=== PATIENT | female | born 1935 | race Caucasian/White ===

== ENCOUNTER 2021-07-05 05:44 | Inpatient (IN) ==
[2021-07-05] MEDS ORDERED: VANCOMYCIN INJ 1,000 MG in SODIUM CHLORIDE 0.9% 250 ML IV ONE (06:00)
[2021-07-05] MEDS ORDERED: GABAPENTIN 400 MG CAPSULE PO ONE (06:00)
[2021-07-05] MEDS ORDERED: FAMOTIDINE 20 MG TABLET PO ONE (06:00)
[2021-07-05] MEDS ORDERED: ACETAMINOPHEN 500 MG TABLET PO ONE (06:00)
[2021-07-05] MEDS ORDERED: ONDANSETRON 4 MG/2 ML VIAL ONE (06:15)
[2021-07-05] MEDS ORDERED: DEXMEDETOMIDINE 200 MCG/2 ML VIAL ONE (06:15)
[2021-07-05] MEDS ORDERED: BUPIVACAINE SPINAL 0.75% 2 ML AMP SPINAL ONE (06:15)
[2021-07-05] MEDS ORDERED: TRANEXAMIC ACID 1,000 MG/10 ML VIAL ONE (06:15)
[2021-07-05] MEDS ORDERED: MIDAZOLAM 2 MG/2 ML VIAL ONE (06:15)
[2021-07-05 06:49] LABS: INR 0.9; PT Patient Result 10.6 SECS (10.5-12.0); Partial Thromboplastin Time 28.2 SECS (23.8-32.1)
[2021-07-05] MEDS ORDERED: DEXAMETHASONE 4 MG/1 ML VIAL ONE ×3 (06:49→07:32)
[2021-07-05] MEDS ORDERED: LIDOCAINE 1% 5 ML VIAL ONE (06:49)
[2021-07-05] MEDS ORDERED: ROPIVACAINE 0.5% 30 ML VIAL ONE (06:49)
[2021-07-05] MEDS: LACTATED RINGERS 1,000 ML IV SCH ×2 (07:15→08:30)
[2021-07-05] MEDS ORDERED: NITROGLYCERIN SL 0.4 MG TABLET SL PRN (07:19)
[2021-07-05] MEDS ORDERED: MAGNESIUM HYDROXIDE SUSP 30 ML UDCUP PO PRN (07:23)
[2021-07-05] MEDS ORDERED: MORPHINE 2 MG/1 ML SYRINGE IV PRN (07:23)
[2021-07-05] MEDS ORDERED: diphenhydrAMINE CAP 25 MG CAPSULE PO PRN (07:23)
[2021-07-05] MEDS ORDERED: ZALEPLON 5 MG CAPSULE PO PRN (07:23)
[2021-07-05] MEDS ORDERED: ONDANSETRON 4 MG/2 ML VIAL IV PRN (07:23)
[2021-07-05] MEDS ORDERED: SEVOFLURANE 1 UNIT/15 MINUTE INH ONE (07:32)
[2021-07-05] MEDS ORDERED: PHENYLEPHRINE 1 MG/10 ML SYRINGE IV ONE ×2 (07:32→08:13)
[2021-07-05] MEDS ORDERED: LACTATED RINGERS 1,000 ML IV ONE (08:23)
[2021-07-05] MEDS ORDERED: ALBUMIN 5% 12.5 GM/250 ML VIAL IV ONE ×2 (09:42→09:44)
[2021-07-05] MEDS: MULTIVITAMIN (CENTRUM) TABLET PO SCH (14:02)
[2021-07-05] MEDS: KETOROLAC 15 MG/1 ML VIAL IV SCH ×3 (14:03→23:06)
[2021-07-05] MEDS: PANTOPRAZOLE 40 MG TABLET PO SCH (14:03)
[2021-07-05] MEDS: AZITHROMYCIN 250 MG TABLET PO SCH (14:03)
[2021-07-05] MEDS: LORATADINE 10 MG TABLET PO SCH (14:03)
[2021-07-05] MEDS: DOCUSATE SODIUM 100 MG CAPSULE PO SCH ×2 (14:03→21:11)
[2021-07-05] MEDS: MULTIVITAMIN (OCUVITE) TABLET PO SCH (14:03)
[2021-07-05] MEDS: POTASSIUM CHLORIDE INJ 20 MEQ in LACTATED RINGERS 1,000 ML IV SCH ×3 (21:08→23:07)
[2021-07-05] MEDS: SOTALOL 80 MG TABLET PO SCH (21:11)
[2021-07-05] MEDS: OXYBUTYNIN 5 MG TABLET PO SCH (21:12)
[2021-07-05] MEDS: APIXABAN 2.5 MG TABLET PO SCH (21:12)
[2021-07-05] MEDS: amLODIPine 5 MG TABLET PO SCH (21:12)
[2021-07-06] MEDS: KETOROLAC 15 MG/1 ML VIAL IV SCH (04:08)
[2021-07-06 05:58] LABS: Basophils % 0.1 % (0.0-0.8); Hematocrit 30.9 VOL% (35.7-47.0); Hemoglobin 10.1 GM/DL (12.0-16.0); Immature Granulocytes % 0.6 %; Immature Granulocytes Absolute 0.09 #; Lymphocytes # 1.9 10*3/uL (1.4-4.0); Lymphocytes % 11.6 % (21.3-54.2); Mean Corpuscular HGB Conc 32.7 GM/DL (32-36); Mean Corpuscular Volume 94.8 FL (87-102); Mean Platelet Volume 12.3 FL (9.6-12.0); Monocytes % 11.3 % (1.7-12.7); Neutrophils % 76.4 % (38.7-73.9); Platelet Count 195 T/CUMM (130-400); Red Blood Count 3.26 MC/CUMM (3.8-5.5); Red Cell Distribution Width 12.2 % (9.3-17.3); White Blood Count 15.9 T/CUMM (4-12)
[2021-07-06 06:13] LABS: Calcium 8.7 MG/DL (8.5-10.1); Osmolality,Calculated 278.5 MOS/KG (273-304)
[2021-07-06] MEDS: POTASSIUM CHLORIDE 10 MEQ TABLET PO SCH (08:54)
[2021-07-06] MEDS: OXYBUTYNIN 5 MG TABLET PO SCH ×2 (08:55→21:15)
[2021-07-06] MEDS: MULTIVITAMIN (OCUVITE) TABLET PO SCH (08:55)
[2021-07-06] MEDS: CHOLECALCIFEROL 400 UNIT TABLET PO SCH ×2 (08:55→21:14)
[2021-07-06] MEDS: SOTALOL 80 MG TABLET PO SCH ×2 (08:55→21:14)
[2021-07-06] MEDS: DOCUSATE SODIUM 100 MG CAPSULE PO SCH ×2 (08:56→21:13)
[2021-07-06] MEDS: MULTIVITAMIN (CENTRUM) TABLET PO SCH (08:56)
[2021-07-06] MEDS: APIXABAN 2.5 MG TABLET PO SCH ×2 (08:56→21:14)
[2021-07-06] MEDS: PANTOPRAZOLE 40 MG TABLET PO SCH (08:56)
[2021-07-06] MEDS: LORATADINE 10 MG TABLET PO SCH (08:56)
[2021-07-06] MEDS: ROSUVASTATIN 10 MG TABLET PO SCH (08:56)
[2021-07-06] MEDS: ASPIRIN CHEW 81 MG TABLET PO SCH (08:56)
[2021-07-06] MEDS: CHOLESTYRAMINE/ASPARTAME 4 GM PACK PO SCH (11:32)
[2021-07-06] MEDS: MORPHINE 2 MG/1 ML SYRINGE IV PRN (19:57)
[2021-07-06] MEDS: amLODIPine 5 MG TABLET PO SCH (21:13)
[2021-07-07 05:50] LABS: Basophils % 0.3 % (0.0-0.8); Eosinophils % 0.2 % (0.00-10.9); Hematocrit 27.6 VOL% (35.7-47.0); Hemoglobin 9.5 GM/DL (12.0-16.0); Immature Granulocytes % 0.5 %; Immature Granulocytes Absolute 0.06 #; Lymphocytes # 1.8 10*3/uL (1.4-4.0); Lymphocytes % 14.6 % (21.3-54.2); Mean Corpuscular HGB Conc 34.4 GM/DL (32-36); Mean Corpuscular Volume 92.6 FL (87-102); Mean Platelet Volume 12.5 FL (9.6-12.0); Monocytes % 17.2 % (1.7-12.7); Neutrophils % 67.2 % (38.7-73.9); Platelet Count 159 T/CUMM (130-400); Red Blood Count 2.98 MC/CUMM (3.8-5.5); Red Cell Distribution Width 12.3 % (9.3-17.3); White Blood Count 12.4 T/CUMM (4-12)
[2021-07-07 06:26] LABS: Hypochromasia 1+; Lymphocytes 9 % (20-55); Microcytosis 1+; Platelet Estimate Adequate; Segmented Neutrophils 81 % (50-85); Total Cells Counted 100
[2021-07-07] MEDS: PANTOPRAZOLE 40 MG TABLET PO SCH (09:28)
[2021-07-07] MEDS: AZITHROMYCIN 250 MG TABLET PO SCH (09:28)
[2021-07-07] MEDS: ASPIRIN CHEW 81 MG TABLET PO SCH (09:29)
[2021-07-07] MEDS: APIXABAN 2.5 MG TABLET PO SCH ×2 (09:29→23:22)
[2021-07-07] MEDS: DOCUSATE SODIUM 100 MG CAPSULE PO SCH ×2 (09:29→23:20)
[2021-07-07] MEDS: SOTALOL 80 MG TABLET PO SCH ×2 (09:29→23:21)
[2021-07-07] MEDS: LORATADINE 10 MG TABLET PO SCH (09:29)
[2021-07-07] MEDS: ROSUVASTATIN 10 MG TABLET PO SCH (09:29)
[2021-07-07] MEDS: CHOLECALCIFEROL 400 UNIT TABLET PO SCH ×2 (09:29→23:21)
[2021-07-07] MEDS: MULTIVITAMIN (OCUVITE) TABLET PO SCH (09:29)
[2021-07-07] MEDS: OXYBUTYNIN 5 MG TABLET PO SCH ×2 (09:29→23:22)
[2021-07-07] MEDS: POTASSIUM CHLORIDE 10 MEQ TABLET PO SCH (09:29)
[2021-07-07] MEDS: MULTIVITAMIN (CENTRUM) TABLET PO SCH (09:29)
[2021-07-07] MEDS: CHOLESTYRAMINE/ASPARTAME 4 GM PACK PO SCH (09:30)
[2021-07-07] MEDS: amLODIPine 5 MG TABLET PO SCH (23:21)
[2021-07-07] MEDS: MORPHINE 2 MG/1 ML SYRINGE IV PRN (23:26)
[2021-07-08 05:30] LABS: Basophils % 0.2 % (0.0-0.8); Eosinophils # 0.1 10*3/uL (0.0-0.87); Eosinophils % 0.5 % (0.00-10.9); Hematocrit 27.9 VOL% (35.7-47.0); Hemoglobin 9.6 GM/DL (12.0-16.0); Immature Granulocytes % 0.4 %; Immature Granulocytes Absolute 0.05 #; Lymphocytes # 1.8 10*3/uL (1.4-4.0); Lymphocytes % 14.6 % (21.3-54.2); Mean Corpuscular HGB Conc 34.4 GM/DL (32-36); Mean Corpuscular Volume 92.4 FL (87-102); Mean Platelet Volume 12.4 FL (9.6-12.0); Monocytes % 16.9 % (1.7-12.7); Neutrophils % 67.4 % (38.7-73.9); Platelet Count 160 T/CUMM (130-400); Red Blood Count 3.02 MC/CUMM (3.8-5.5); Red Cell Distribution Width 12.2 % (9.3-17.3); White Blood Count 12.5 T/CUMM (4-12)
[2021-07-08 05:55] LABS: Hypochromasia 1+; Lymphocytes 10 % (20-55); Microcytosis 1+; Platelet Estimate Adequate; Segmented Neutrophils 78 % (50-85); Total Cells Counted 100
[2021-07-08] MEDS: DOCUSATE SODIUM 100 MG CAPSULE PO SCH (08:25)
[2021-07-08] MEDS: ASPIRIN CHEW 81 MG TABLET PO SCH (08:26)
[2021-07-08] MEDS: PANTOPRAZOLE 40 MG TABLET PO SCH (08:26)
[2021-07-08] MEDS: APIXABAN 2.5 MG TABLET PO SCH (08:26)
[2021-07-08] MEDS: MULTIVITAMIN (OCUVITE) TABLET PO SCH (08:26)
[2021-07-08] MEDS: CHOLECALCIFEROL 400 UNIT TABLET PO SCH (08:26)
[2021-07-08] MEDS: MULTIVITAMIN (CENTRUM) TABLET PO SCH (08:26)
[2021-07-08] MEDS: LORATADINE 10 MG TABLET PO SCH (08:26)
[2021-07-08] MEDS: SOTALOL 80 MG TABLET PO SCH (08:27)
[2021-07-08] MEDS: ROSUVASTATIN 10 MG TABLET PO SCH (08:27)
[2021-07-08] MEDS: POTASSIUM CHLORIDE 10 MEQ TABLET PO SCH (08:27)
[2021-07-08] MEDS: OXYBUTYNIN 5 MG TABLET PO SCH (08:27)
[2021-07-08] MEDS: CHOLESTYRAMINE/ASPARTAME 4 GM PACK PO SCH (10:02)
[2021-07-08 11:26] VITALS: BP 126/77
== END 2021-07-08 14:10 | disposition swing bed (61) | DRG 470 ==
LOC: N.OR 05:44 → N.SDSINP 05:46 → N.3E 12:11
PROVIDERS: ADMIT Orthopaedic Surgery; ATTEND Orthopaedic Surgery